=== PATIENT | male | born 1980 | race Caucasian/White ===

== ENCOUNTER 2022-05-01 22:16 | Emergency (ER) | payer MEDICAID, OTHER ==
[~2022-05-01] VITALS: Ht 175.3 cm; Wt 90.7 kg
[2022-05-01] MEDS ORDERED: MORPHINE SULFATE 4 MG/1 ML DISP.SYRIN IM ONE (23:45)
[2022-05-01] MEDS ORDERED: MORPHINE SULFATE 2 MG/1 ML DISP.SYRIN ONE (23:48)
--- NOTE | 2022-05-01 23:55 | NUR ---
Patient walked into ER c/o penile pain. Per patient experiencing phimosis since yesterday night. Patient was placed in room 2A.
--- NOTE | 2022-05-02 | NUR ---
Dr. Peraza evaluating patient at bedside. MSE in progress.
--- NOTE | 2022-05-02 00:39 | NUR ---
Patient discharged to home in stable condition. Written and verbal after care instructions given. Patient verbalizes understanding of instructions. Stressed follow up or return to ER for worsening s/s.
[2022-05-02 00:43] VITALS: BP 115/78
== END 2022-05-02 00:43 | disposition home or self-care (01) ==
LOC: ER 22:16
DX: N47.2 Paraphimosis (principal); I10 Essential (primary) hypertension; E11.9 Type 2 diabetes mellitus without complications; Z87.891 Personal history of nicotine dependence
CPT/HCPCS: 99284; 96372; 54450; J2270; A4663